=== PATIENT | male | born 1960 | race Caucasian/White ===

== ENCOUNTER → 2016-10-17 | Outpatient (CLI) | payer OTHER | LOC: FIMAGING 15:52 | PROVIDERS: ATTEND Orthopaedic Surgery | DX: Z01.818 Encounter for other preprocedural examination (principal); M17.11 Unilateral primary osteoarthritis, right knee ==

== ENCOUNTER → 2016-11-05 | Day surgery (SDC) | payer OTHER ==
[2016-10-22 16:37] LABS: % IMMATURE GRANULYOCYTES 0.4 % (0.0-1.1); ABSOLUTE IMMATURE GRANULOCYTES 0.03 10^3/uL (0.00-0.10); ADD DIFF? NO; ADD MORPH? NO; ADD SCAN? NO; ATYPICAL LYMPHOCYTE FLAG 0 (0-99); FRAGMENT RBC FLAG 0 (0-99); HEMATOCRIT 42.4 % (40.0-51.0); HEMOGLOBIN 14.7 g/dL (13.7-17.5); LEFT SHIFT FLG 0 (0-99); LIPEMIA HEMOLYSIS FLAG 90 (0-99); MEAN CELL HEMOGLOBIN 29.9 pg (27.9-34.1); MEAN CELL HEMOGLOBIN CONCENTR. 34.7 g/dL (32.4-36.7); MEAN CELL VOLUME 86.2 fL (81.5-99.8); PLATELET CLUMPS FLAG 0 (0-99); PLATELET COUNT 235 10^3/uL (150-400); RED BLOOD CELL COUNT 4.92 10^6/uL (4.40-6.38); RED CELL DISTRIBUTION WIDTH 12.6 % (11.5-15.2)
[~2016-11-05] MED LIST: ACETAMINOPHEN 325 MG TAB PO ONE; CEFAZOLIN 2 GM/DEXTR 100 ML IV ONE; CHLORHEXIDINE GLUC HIBICLENS 118 ML BTL TP ONE; DEXAMETHASONE 4 MG/ML VIAL IVP ONE; FAMOTIDINE 20 MG TAB PO ONE; LIDOCAINE 1% 2 ML INJ ONE; LIDOCAINE 1% 5 ML SDV ID PRN; LR 1,000 ML IV ONE; ROPI/epiNEPH/KETOROLAC JOINT COCKTAIL IU ONE; SKIN ADHESIVE (DERMABOND) 1 EACH TP ONE; TRANEXAMIC ACID 3,000 MG in NS 50 ML IRR ONE; TRANEXAMIC ACID 3,000 MG/50 ML BAG IRR ONE; VANCOMYCIN 1 GM VIAL IV ONE; fentaNYL 100 MCG/2 ML INJ ONE
== END | disposition home or self-care (01) ==
LOC: UNDOADMIN 06:57 → F3N 06:57 → F3NOP 07:45 → EDSTATUS 08:15
PROVIDERS: ATTEND Orthopaedic Surgery
DX: M17.11 Unilateral primary osteoarthritis, right knee (principal); Z53.9 Procedure and treatment not carried out, unspecified reason
CPT/HCPCS: J0171; J1885; J2795; J3010; J3370

== ENCOUNTER → 2016-12-30 | Outpatient (CLI) | payer OTHER | LOC: FIMAGING 15:30 | PROVIDERS: ATTEND Orthopaedic Surgery | DX: Z01.818 Encounter for other preprocedural examination (principal); M17.12 Unilateral primary osteoarthritis, left knee ==

== ENCOUNTER 2017-01-21 08:15 | Observation (INO) | payer OTHER ==
[~2017-01-21 08:15] MED LIST changes: -CEFAZOLIN 2 GM/DEXTR 100 ML IV ONE; -LIDOCAINE 1% 2 ML INJ ONE; -LIDOCAINE 1% 5 ML SDV ID PRN; -LR 1,000 ML IV ONE; -SKIN ADHESIVE (DERMABOND) 1 EACH TP ONE; -VANCOMYCIN 1 GM VIAL IV ONE; +VANCOMYCIN 1 GM VIAL ONE; +VANCOMYCIN 1.5 GM in D5W 250 ML IV ONE; -fentaNYL 100 MCG/2 ML INJ ONE
[2017-01-21] MEDS ORDERED: FAMOTIDINE 20 MG TAB ONE (11:20)
[2017-01-21] MEDS ORDERED: DEXAMETHASONE 4 MG/ML VIAL ONE (11:20)
[2017-01-21] MEDS ORDERED: ACETAMINOPHEN 325 MG TAB ONE (11:21)
[2017-01-21] MEDS ORDERED: KETOROLAC TROMETHAMINE IU ONE (11:45)
[2017-01-21] MEDS ORDERED: ROPIVACAINE IU ONE (11:45)
[2017-01-21] MEDS ORDERED: EPINEPHRINE IU ONE (11:45)
[2017-01-21] MEDS ORDERED: ROPI/epiNEPH/KETOROLAC JOINT COCKTAIL IU ONE (11:45)
[2017-01-21] MEDS ORDERED: LR 1,000 ML IV ONE (12:06)
[2017-01-21] MEDS ORDERED: PROPOFOL/EMULSION 500 MG/50 ML BOTTLE IV ONE ×3 (13:21→16:50)
[2017-01-21] MEDS ORDERED: LIDOCAINE 2% 100 MG/5 ML SYR ONE (13:21)
[2017-01-21] MEDS ORDERED: MIDAZOLAM 2 MG/2 ML VIAL ONE (14:16)
[2017-01-21] MEDS ORDERED: CYCLOBENZAPRINE 10 MG TAB PO PRN (15:12)
[2017-01-21] MEDS ORDERED: ONDANSETRON 4 MG/2 ML VIAL IVP PRN (15:12)
[2017-01-21] MEDS ORDERED: MAGNESIUM HYDROXIDE 30 ML UDCUP PO PRN (15:12)
[2017-01-21] MEDS ORDERED: PHARMACY PAIN CONSULT 1 EA MISC PRN (15:12)
[2017-01-21] MEDS ORDERED: PROMETHAZINE HCL 25 MG/ML INJ IVP PRN (15:12)
[2017-01-21] MEDS ORDERED: POLYETHYLENE GLYCOL 3350 17 GM PKT PO PRN (15:12)
[2017-01-21] MEDS ORDERED: METOCLOPRAMIDE 10 MG/2 ML VIAL IVP PRN (15:12)
[2017-01-21] MEDS ORDERED: diphenhydrAMINE 25 MG CAP PO PRN (15:12)
[2017-01-21] MEDS ORDERED: LACTULOSE 20 GM/30 ML UDCUP PO PRN (15:12)
[2017-01-21] MEDS ORDERED: BISACODYL 10 MG SUPP PR PRN (15:12)
[2017-01-21] MEDS ORDERED: PROMETHAZINE HCL 25 MG SUPPR PR PRN (15:12)
[2017-01-21] MEDS ORDERED: DIPHENOXYLATE/ATROPINE LOMOTIL 1 TAB PO PRN (15:12)
[2017-01-21] MEDS ORDERED: TEMAZEPAM 15 MG CAP PO PRN (15:12)
[2017-01-21] MEDS ORDERED: LR 1,000 ML IV SCH (15:30)
[2017-01-21] MEDS ORDERED: WARFARIN SODIUM 5 MG TAB PO SCH (16:00)
[2017-01-21] MEDS ORDERED: ROPIVACAINE HCL 150 MG/30 ML INJ ONE (16:14)
[2017-01-21] MEDS ORDERED: fentaNYL 100 MCG/2 ML INJ ONE (16:40)
--- NOTE | 2017-01-21 17:19 | POSTOPPROG ---
Post Op Note Date of Operation: 01/21/17 Surgeon: Gallo Zhao Simulation Technician: Zoraida Zhao PAc Anesthesiologist: Hakeem Anesthesia: Spinal Pre-op Diagnosis: B knee djd Post-op Diagnosis: same Indication: pain Procedure: right then left med mpl Findings: knee djd Inf/Abcess present in the surg proc area at time of surgery?: No EBL: 50-100
[2017-01-21] MEDS: FAMOTIDINE 20 MG TAB PO SCH (19:42)
[2017-01-21] MEDS: ACETAMINOPHEN 325 MG TAB PO SCH ×2 (19:43→23:53)
[2017-01-21] MEDS: SENNOSIDES/DOCUSATE SODIUM TAB PO SCH (19:43)
[2017-01-21] MEDS: TAPENTADOL HCL 50 MG TAB PO PRN ×2 (20:08→23:53)
[2017-01-21] MEDS: ONDANSETRON DISINTEGRATING 4 MG TAB PO PRN ×2 (20:09→23:53)
[2017-01-22] MEDS ORDERED: VANCOMYCIN 1.5 GM in D5W 250 ML IV ONE (01:30)
[2017-01-22 05:28] LABS: HEMATOCRIT 42.5 % (40.0-51.0)
[2017-01-22] MEDS: ACETAMINOPHEN 325 MG TAB PO SCH ×2 (05:47→12:13)
[2017-01-22] MEDS: TAPENTADOL HCL 50 MG TAB PO PRN ×3 (05:47→13:31)
[2017-01-22] MEDS: ONDANSETRON DISINTEGRATING 4 MG TAB PO PRN ×2 (05:47→13:33)
[2017-01-22 06:30] LABS: INR 1.08 (0.83-1.16); PROTIME(PATIENT) 13.9 SEC (12.0-15.0)
[2017-01-22 08:01] VITALS: PULSE 70; RESP 16
[2017-01-22] MEDS: SENNOSIDES/DOCUSATE SODIUM TAB PO SCH (08:35)
[2017-01-22] MEDS: FAMOTIDINE 20 MG TAB PO SCH (08:35)
[2017-01-22] MEDS ORDERED: ENOXAPARIN 40 MG/0.4 ML SYR SC SCH (09:00)
--- NOTE | 2017-01-22 09:55 | SOAPPROG ---
SOAP Progress Note Assessment/Plan: Assessment: Patient is doing well POD 1 s/p bilateral medial MPL Pain management: pain is well controlled on oral pain meds. VTE ppx: recommend coumadin daily for 3 weeks, cont MICAELA and SCDs. INR today 1.08 Anemia: level is expected initially postop. Asymptomatic. Continue to monitor D/c planning: d/c to home today pending release from PT Plan: 01/22/17 09:54 Subjective: Clark is doing well today, denies SOB ,chest pain and N/V. Objective: Vital Signs Temp Pulse Resp BP Pulse Ox 37.3 C 70 16 116/76 91 L 01/22/17 08:00 01/22/17 08:00 01/22/17 08:00 01/22/17 08:00 01/22/17 08:00 Laboratory Results 01/22/17 05:11 01/21/17 01/22/17 01/23/17 05:59 05:59 05:59 Intake Total 3850 Output Total 575 Balance 3275 PT 13.9 SEC (12.0-15.0) 01/22/17 05:11 INR 1.08 (0.83-1.16) 01/22/17 05:11 BLE: incision dressing is clean and dry, NVI, +pf/df ICD10 Worksheet Patient Problems: Problems Problem Status Onset Primary localized osteoarthritis of left knee Acute Primary localized osteoarthritis of right knee Acute
[2017-01-22 11:45] VITALS: BP 138/74; TEMP 98.4; O2SAT 95
--- NOTE | 2017-01-22 14:41 | GOP ---
[f rep st] OPERATIVE REPORT DATE OF OPERATION: 01/21/2017 SURGEON: Kimberly Zhao MD CONSTRUCTION JOB TITLES: Zoraida Zhao PA-C. ANESTHESIA: Spinal. PREOPERATIVE DIAGNOSIS: Bilateral knee osteoarthritis. POSTOPERATIVE DIAGNOSIS: Bilateral knee osteoarthritis. PROCEDURE PERFORMED: 1. Right medial compartment partial knee replacement with computer navigation, robotic-assist. 2. Left medial compartment partial knee replacement with computer navigation, robotic-assist. FINDINGS: bilateral severe medial DJD ESTIMATED BLOOD LOSS: 50 cc. INDICATIONS: This is a 56-year-old male with severe and progressive pain and deformity of the bilateral knees unresponsive to conservative care. The risks and benefits of surgical intervention were explained in detail. DESCRIPTION OF PROCEDURE: The patient was brought to the operating room and placed on the table in supine position. Spinal anesthesia was induced without difficulty. A pneumatic tourniquet was applied about the proximal thigh and the leg was prepped and draped in sterile fashion. Attention was turned first to the distal aspect of the right femur. At 3 cm proximal to the lateral rise of the femur, 2 percutaneous half pins were placed for fixation of the femoral array. In a similar fashion, 2 pins were placed anterolateral on the tibia for fixation of the tibial array. External land marking and registration of the hip center was performed without difficulty. After exsanguination by elevation, the tourniquet was inflated to 250 mmHg. Incision was made from the tibial tuberosity to the superior pole of the patella. Dissection was carried out through the subcutaneous tissue to the deep fascia using Bovie electrocautery for hemostasis. Medial parapatellar arthrotomy was carried out to the superior pole of the patella. The medial collateral ligament was elevated and the infrapatellar fat pad was resected. Internal femoral and tibial registration was carried out without difficulty and the femoral and tibial checkpoints were placed and verified for accuracy. Attention was turned to the femur. The foot print for the size 6 femoral component was cut with the 6 mm bur using the Contractually robotic system and verified for accuracy against the CT based plan. The hole was cut for the femoral post. In a similar fashion, the 6 mm bur was used to cut the foot print for the size 6 tibial component using the BERNARD system and verified for accuracy against the CT based plan. Attention was turned to the posterior aspect of the knee and remnants of the medial meniscus were excised. The posterior capsule was injected with ropivacaine, epinephrine and Toradol. Trial reduction was carried out and there was excellent range of motion, alignment and stability using the size 6 femoral component and the size 6 tibial component, 6 x 9 mm polyethylene. All trials were then removed. The joint was thoroughly irrigated and carefully dried. One package of cement and 1 gram of vancomycin were mixed in the vacuum mixer and placed on the fixation surfaces of all components. The components were implanted and all excess cement was thoroughly removed. Implant placement was verified against the CT view plan and found to be excellent. The tourniquet was deflated and all bleeders were coagulated. The wound was thoroughly irrigated and closed using interrupted sutures of 2-0 Vicryl for the joint capsule. The subcu was closed with 3-0 Vicryl and the skin with 4-0 Monocryl. Dermabond and Steri-Strips were applied, followed by a compressive dressing. Attention was then turned to the left leg. A pneumatic tourniquet was applied about the proximal thigh and the leg was prepped and draped in sterile fashion. Attention was turned first to the distal aspect of the left femur. At 3 cm proximal to the lateral rise of the femur, 2 percutaneous half pins were placed for fixation of the femoral array. In a similar fashion, 2 pins were placed anterolateral on the tibia for fixation of the tibial array. External land marking and registration of the hip center was performed without difficulty. After exsanguination by elevation, the tourniquet was inflated to 250 mmHg. Incision was made from the tibial tuberosity to the superior pole of the patella. Dissection was carried out through the subcutaneous tissue to the deep fascia using Bovie electrocautery for hemostasis. Medial parapatellar arthrotomy was carried out to the superior pole of the patella. The medial collateral ligament was elevated and the infrapatellar fat pad was resected. Internal femoral and tibial registration was carried out without difficulty and the femoral and tibial checkpoints were placed and verified for accuracy. Attention was turned to the femur. The foot print for the size 6 femoral component was cut with the 6 mm bur using the Contractually robotic system and verified for accuracy against the CT based plan. The hole was cut for the femoral post. In a similar fashion, the 6 mm bur was used to cut the foot print for the size 7 tibial component using the BERNARD system and verified for accuracy against the CT based plan. Attention was turned to the posterior aspect of the knee and remnants of the medial meniscus were excised. The posterior capsule was injected with ropivacaine, epinephrine and Toradol. Trial reduction was carried out and there was excellent range of motion, alignment and stability using the size 6 femoral component and the size 7 tibial component, 7x8 mm polyethylene. All trials were then removed. The joint was thoroughly irrigated and carefully dried. One package of cement and 1 gram of vancomycin were mixed in the vacuum mixer and placed on the fixation surfaces of all components. The components were implanted and all excess cement was thoroughly removed. Implant placement was verified against the CT view plan and found to be excellent. The tourniquet was deflated and all bleeders were coagulated. The wound was thoroughly irrigated and closed using interrupted sutures of 2-0 Vicryl for the joint capsule. The subcu was closed with 3-0 Vicryl and the skin with 4-0 Monocryl. Dermabond and Steri-Strips were applied, followed by a compressive dressing. The patient was then moved from the operating room to the recovery room in good condition, having tolerated the procedure well. CASE CLASSIFICATION: Clean. /[id number]/MODL MTDD
== END 2017-01-22 14:03 | disposition home or self-care (01) ==
LOC: INTOOBSV 10:56 → F3N 10:56
PROVIDERS: ADMIT Orthopaedic Surgery; ATTEND Orthopaedic Surgery
PROC: 8E0YXBZ Computer Assisted Procedure of Lower Extremity (ICD-10-PCS; principal; 2017-01-21 14:15)
PROC: 0SRD0JZ Replacement of Left Knee Joint with Synthetic Substitute, Open Approach (ICD-10-PCS; principal; 2017-01-21 14:15)
PROC: 0SRC0JZ Replacement of Right Knee Joint with Synthetic Substitute, Open Approach (ICD-10-PCS; principal; 2017-01-21 14:15)
DX: M17.0 Bilateral primary osteoarthritis of knee (principal); M25.561 Pain in right knee; M25.562 Pain in left knee; Z79.01 Long term (current) use of anticoagulants
CPT/HCPCS: 20985; 27446; 73560; 97161; 97165; G0378; C1713; J0171; J1100; J1650; J1885; J2001; J2250; J2704; J2795; J3010; J3370

== ENCOUNTER 2017-08-30 10:49 | Emergency (ER) | payer OTHER ==
[2017-08-30 11:00] VITALS: BP 149/97; PULSE 74; RESP 16; TEMP 98.8; O2SAT 94
--- NOTE | 2017-08-30 12:03 | EDPHY ---
General Narrative: CHIEF COMPLAINT: Low back pain starting Thursday HISTORY OF PRESENT ILLNESS: Patient complains of back pain that started yesterday morning. He feels is related to exercise he did Thursday. It was minimally painful Thursday. He awoke Thursday with moderate to severe low back pain, right greater than left. No midline tenderness or trauma. No radiating pain. No numbness, tingling or weakness. No fever or chills. No injections. No difficulty ambulating other than pain. Has a history of disc bulge and diskectomy remotely. He has no other associated complaints or modifying factors. ESTABLISHED ORTHOPEDIST: None currently REVIEW OF SYSTEMS: Ten systems reviewed and are negative unless otherwise noted in the HPI PAST MEDICAL HISTORY: Back pain, dermatologic diagnoses unknown PAST SURGICAL HISTORY: Low back diskectomy SOCIAL HISTORY: Nonsmoker. Works as a learning disabilities resource teacher FAMILY HISTORY: Noncontributory EXAMINATION General Appearance: Alert, no distress Neck: Supple nontender. No tenderness, crepitus or deformity. Back: No midline tenderness of the thoracic or lumbar spine. There is tenderness of the soft tissue structures in the lumbar spine, right greater than left. This primarily the erector spinae. This is also in the insertion of the latissimus dorsi. Range of motion is intact but painful. Cardiovascular: Symmetric DP and PT pulses 2+. Brisk cap refill Neurological: Symmetric patellar reflexes 2+. Strength is 5/5 in the knees and ankles symmetrically A&O, sensory symmetric, strength symmetric Skin: Warm and dry, no rash. No petechiae or purpura. No erythema or abscess over the spinous processes. Extremities: Nontender, no pedal edema Psychiatric: Mood and affect normal DIFFERENTIAL DIAGNOSES: Including but not limited to low back strain, sciatica, disc bulge, disc herniation, acute cord compression, cauda equina MDM: 12:25 p.m. Acute low back pain without any evidence of acute cord compression or cauda equina. No bony tenderness. No evidence of epidural abscess or diskitis. This is a mechanical injury. I will treat him symptomatically and refer him back to his primary care physician. I do not feel he warrants any emergent imaging or x -ray at this time. He and his spouse are comfortable this plan. He has ED precautions that we discussed at length. He is ambulatory without assistance. He is discharged home stable condition. SUPERVISION: This patient was independently evaluated without direct involvement of or examination by the attending physician. ED Precautions: Worsening pain. Erythema, edema, cyanosis, pallor, paresthesia or anesthesia. - History Smoking Status: Never smoked - Objective Vital Signs: Initial Vital Signs Temperature (C) 98.8 F 08/30/17 10:56 Heart Rate 74 08/30/17 10:56 Respiratory Rate 16 08/30/17 10:56 Blood Pressure 149/97 H 08/30/17 10:56 O2 Sat (%) 94 08/30/17 10:56 O2 Delivery Mode Room Air Allergies/Adverse Reactions: Penicillins Allergy (Severe, Verified 10/06/16 16:17) Hives celecoxib [From Celebrex] Allergy (Verified 10/06/16 16:17) Vomiting gabapentin Allergy (Verified 10/06/16 16:17) Other-Enter Comments hydrocodone bitartrate [From Vicodin] Allergy (Verified 10/06/16 16:17) Itching metaxalone [From Skelaxin] Allergy (Verified 10/06/16 16:17) Itching oxycodone Allergy (Verified 10/06/16 16:17) Itching pneumococcal 23-valent polysacchari [From Pneumovax 23] Allergy (Verified 16:17) Hives Home Medications: Medication Instructions Recorded Cholecalciferol Vit D3 [Vitamin D3 5,000 units PO DAILY 06/05/16 (*)] Acetaminophen [Tylenol 325mg (*)] 325 mg PO DAILY PRN 12/25/16 Acetaminophen [Tylenol 325mg (*)] 650 mg PO Q6HRS #0 tab 01/21/17 Ondansetron Odt [Zofran Odt 4 mg 4 mg PO Q4HRS PRN #0 tab 01/21/17 (*)] Sennosides/Docusate Sodium 1 - 2 tab PO BID #0 tab 01/21/17 [Senokot-S] Diazepam [Valium 5 MG (*)] 5 mg PO TID PRN #6 tab 08/30/17 Ondansetron Odt [Zofran Odt 4 mg 4 mg PO Q6 PRN #12 tab 08/30/17 (*)] predniSONE [Deltasone] 60 mg PO DAILY #15 tablet 08/30/17 traMADol [Ultram 50 mg (*)] 50 mg PO Q4 PRN #12 tab 08/30/17 Departure - Departure Disposition: Home, Routine, Self-Care Clinical Impression: Low back strain Qualifiers: Encounter type: initial encounter Qualified Code(s): S39.012A - Strain of muscle, fascia and tendon of lower back, initial encounter Acute low back pain Qualifiers: Back pain laterality: right Sciatica presence: without sciatica Qualified Code( s): M54.5 - Low back pain Condition: Good Instructions: Low Back Strain (ED), Acute Low Back Pain (ED) Additional Instructions: 1. Medications as prescribed as needed 2. Contact primary care physician tomorrow morning for outpatient workup 3. ED precautions as discussed 4. Topical lidocaine patch [id number] 12 hr on, 12 hr off Referrals: Patrica Horowitz MD [Primary Care Provider] - As per Instructions Humberto Naik MD [Medical Doctor] - As per Instructions Stand Alone Forms: Work Excuse Prescriptions: Diazepam [Valium 5 MG (*)] 5 mg PO TID PRN #6 tab PRN Reason: Spasms Ondansetron Odt [Zofran Odt 4 mg (*)] 4 mg PO Q6 PRN #12 tab PRN Reason: Nausea/Vomiting, Use 1st predniSONE [Deltasone] 60 mg PO DAILY #15 tablet traMADol [Ultram 50 mg (*)] 50 mg PO Q4 PRN #12 tab PRN Reason: Pain, Mild
== END 2017-08-30 12:51 | disposition home or self-care (01) ==
DX: S39.012A Strain of muscle, fascia and tendon of lower back, initial encounter (principal); X58.XXXA Exposure to other specified factors, initial encounter

== ENCOUNTER → 2018-06-27 12:18 | Inpatient (IN) | payer OTHER ==
--- NOTE | 2018-06-23 06:40 | PDHPUP ---
History & Physical Update H&P update statement: This history and physical update is based on an assessment of the patient which was completed after admission or registration (within 24 hours), but prior to the surgery/procedure. H&P update: H&P reviewed & patient examined, no change in patient's condition since H&P completed
--- NOTE | 2018-06-23 07:37 | PDANEPAE ---
ANE Past Medical History - Cardiovascular History Hx Hypertension: No Hx Arrhythmias: No Hx Chest Pain: No Hx Coronary Artery / Peripheral Vascular Disease: No Hx CHF / Valvular Disease: No Hx Palpitations: No - Pulmonary History Hx COPD: No Hx Asthma/Reactive Airway Disease: No Hx Recent Upper Respiratory Infection: No Hx Oxygen in Use at Home: No Hx Sleep Apnea: Yes Sleep Apnea Screening Result - Last Documented: Positive Pulmonary History Comment: sarcoidosis >10 yrs ago - NO LONGER. treasure positive uses cpap- instructed pt to bring to hospital - Neurologic History Hx Cerebrovascular Accident: No Hx Seizures: No Hx Dementia: No Neurologic History Comment: hx of spinal leak needing blood patch s/p spinal anesthesia - Endocrine History Hx Diabetes: No - Renal History Hx Renal Disorders: No - Liver History Hx Hepatic Disorders: No - Neurological & Psychiatric Hx Hx Neurological and Psychiatric Disorders: No - Cancer History Hx Cancer: Yes Cancer History Comment: mohs procedure to left hand for skin ca - Congenital Disorder History Hx Congenital Disorders: No - GI History Hx Gastrointestinal Disorders: No Gastrointestinal History Comment: NEG - Other Health History Other Health History: wears glasses - Chronic Pain History Chronic Pain: Yes (R HIP) - Surgical History Prior Surgeries: THERON TKA. 07/01/16 right shoulder scope with Eduard and umbilical hernia repair with Paulino. R HAND X2. R ELBOW. R SHOULDER. R KNEE X3. HERNIA THERON. R GROIN. VASECTOMY. DISC LUMBAR. L KNEE X2. L SHOULDER ANE Review of Systems Review of Systems: - Exercise capacity METS (RN): 5 METS ANE Patient History - Allergies Allergies/Adverse Reactions: Penicillins Allergy (Severe, Verified 10/06/16 16:17) Hives celecoxib [From Celebrex] Allergy (Verified 10/06/16 16:17) Vomiting gabapentin Allergy (Verified 10/06/16 16:17) Other-Enter Comments hydrocodone bitartrate [From Vicodin] Allergy (Verified 10/06/16 16:17) Itching metaxalone [From Skelaxin] Allergy (Verified 10/06/16 16:17) Itching oxycodone Allergy (Verified 10/06/16 16:17) Itching pneumococcal 23-valent polysacchari [From Pneumovax 23] Allergy (Verified 16:17) Hives - Home Medications Home Medications: Cholecalciferol Vit D3 [Vitamin D3 (*)] 1,000 units PO DAILY 06/21/18 [Last Taken Unknown] Multivitamins [Multivitamin (*)] 1 each PO DAILY 06/21/18 [Last Taken Unknown] RX: Herbals/Supplements -Info Only 1 ea PO DAILY 06/21/18 [Last Taken Unknown] - NPO status NPO Since - Liquids (Date): 06/23/18 NPO Since - Liquids (Time): 06:45 NPO Since - Solids (Date): 06/22/18 - Smoking Hx Smoking Status: Never smoked - Family Anes Hx Family Hx Anesthesia Complications: none ANE Labs/Vital Signs - Vital Signs Height: 177.8 cm Weight: 108.862 kg ANE Physical Exam - Airway Mallampati Score: Class 2 Mouth exam: normal dental/mouth exam - Pulmonary Pulmonary: no respiratory distress, no rales or rhonchi, clear to auscultation - Cardiovascular Cardiovascular: regular rate and rhythym, no murmur, rub, or gallop - ASA Status ASA Status: II ANE Anesthesia Plan Anesthesia Plan: spinal
--- NOTE | 2018-06-23 09:20 | POSTOPPROG ---
Post Op Note Date of Operation: 06/23/18 Surgeon: Gallo Greene Rnp: adi greene PA-C Anesthesiologist: dr. Burns Anesthesia: Spinal Pre-op Diagnosis: right hip OA Post-op Diagnosis: same Indication: right hip pain Procedure: R JUNO ant approach Findings: severe hip OA Inf/Abcess present in the surg proc area at time of surgery?: No EBL: 100-500
[2018-06-23] MEDS: fentaNYL 100 MCG/2 ML INJ IVP PRN ×2 (10:33→10:44)
--- NOTE | 2018-06-23 10:39 | POSTANESTH ---
Post Anesthetic Evaluation Cardiovascular Status: Normal, Stable Respiratory Status: Normal, Stable Level of Consciousness/Mental Status: Can Participate in Eval Pain Control: Adequate, Prn Tx Ordered Nausea/Vomiting Control: Adequate, Prn Tx Ordered Complications Possibly Related to Anesthesia: None Noted
[2018-06-23] MEDS: TAPENTADOL HCL 50 MG TAB PO PRN ×3 (11:52→20:14)
[2018-06-23] MEDS: ACETAMINOPHEN 325 MG TAB PO SCH ×3 (11:52→23:05)
[2018-06-23] MEDS: CYCLOBENZAPRINE 10 MG TAB PO PRN ×2 (13:22→21:32)
--- NOTE | 2018-06-23 15:20 | PDMN ---
Medical Necessity Medical necessity: Pt meets inpt criteria per MD order and [facility] [place] S-560, Hip Arthroplasty, Medicare inpt only list. 57 y/o admitted for R total hip arthroplasty and post-op care.
[2018-06-23] MEDS: WARFARIN SODIUM 5 MG TAB PO SCH (15:35)
[2018-06-23] MEDS: FAMOTIDINE 20 MG TAB PO SCH (20:13)
[2018-06-23] MEDS: SENNOSIDES/DOCUSATE SODIUM TAB PO SCH (20:14)
[2018-06-23] MEDS: TEMAZEPAM 15 MG CAP PO PRN (21:32)
[2018-06-24] MEDS: TAPENTADOL HCL 50 MG TAB PO PRN ×5 (00:13→21:16)
[2018-06-24 05:25] LABS: INR 1.08 (0.83-1.16); PROTIME(PATIENT) 14.2 SEC (12.0-15.0)
[2018-06-24] MEDS: ACETAMINOPHEN 325 MG TAB PO SCH ×4 (06:06→23:54)
--- NOTE | 2018-06-24 08:26 | SOAPPROG ---
SOAP Progress Note Assessment/Plan: Assessment: Patient is doing well POD 1 s/p R JUNO Pain management: pain is well controlled on oral pain meds. VTE ppx: recommend coumadin and lovenox. INR today 1.08, cont MICAELA and SCDs D/c planning: d/c to home today pending release from PT postop urinary retention: straight cath'd yesterday, resolved today Plan: 06/24/18 08:24 06/24/18 08:26 Subjective: levi is doing well, mild pain, denies SOB, chest pain and N/V. Objective: Vital Signs Temp Pulse Resp BP Pulse Ox 36.6 C 84 16 132/74 H 92 06/24/18 07:31 06/24/18 07:31 06/24/18 07:31 06/24/18 07:31 06/24/18 07:31 Laboratory Results 06/24/18 04:25 06/23/18 11:54 06/23/18 06/24/18 06/25/18 05:59 05:59 05:59 Intake Total 850 Output Total 1200 Balance -350 PT 14.2 SEC (12.0-15.0) 06/24/18 04:25 INR 1.08 (0.83-1.16) 06/24/18 04:25 RLE: incision dressing is clean and dry, NVI, +pf/df ICD10 Worksheet Patient Problems: Problems Problem Status Onset Primary localized osteoarthritis of right hip Acute Primary localized osteoarthritis of left knee Acute Primary localized osteoarthritis of right knee Acute
[2018-06-24] MEDS: SENNOSIDES/DOCUSATE SODIUM TAB PO SCH ×2 (08:36→21:17)
[2018-06-24] MEDS: CYCLOBENZAPRINE 10 MG TAB PO PRN (08:37)
[2018-06-24] MEDS: FAMOTIDINE 20 MG TAB PO SCH ×2 (08:37→21:17)
--- NOTE | 2018-06-24 09:36 | ASMTLACE ---
LACE Length of stay for Answers: 2 days current admission Acuity / Level of Answers: Yes Care: Did the patient have an inpatient admission? Comorbidities - select Answers: Opioid dependence all that apply / Chronic pain # of Emergency department Answers: 1-2 visits in the last 6 months Score: 10 Date Signed: 06/24/2018 09:35 AM Electronically Signed By:VINNIE De oSuza
[2018-06-24] MEDS: ENOXAPARIN 40 MG/0.4 ML SYR SC SCH (09:54)
--- NOTE | 2018-06-24 10:25 | GOP ---
DATE OF OPERATION: 06/23/2018 SURGEON: Kimberly Zhao MD ELECTRICIAN OFFICE: Zoraida Zhao, JAYESH. ANESTHESIA: Spinal. PREOPERATIVE DIAGNOSIS: Right hip osteoarthritis. POSTOPERATIVE DIAGNOSIS: Right hip osteoarthritis. PROCEDURE PERFORMED: Right total hip arthroplasty. FINDINGS: ESTIMATED BLOOD LOSS: 200 cc. INDICATIONS: The patient has progressively worsening arthritis of the hip which has failed medical m anagement. The patient understands the treatment options including continued non-operative care and has selected surgical intervention. The patient has decided to undergo total hip arthroplasty via th e direct anterior approach, understanding the risks of the procedure including, but not limited to, n eurovascular injury, infection, persistent pain, component wear and loosening, deep venous thrombosis , pulmonary embolism, limb length inequality, hip instability (including dislocation), and intra-oper ative fractures. DESCRIPTION OF PROCEDURE: After proper identification of the patient including verification and fany ing the surgical site, the patient was brought to the operating room and placed in the supine positio n. All bony prominences were well padded. Anesthesia was induced without complication and intraveno us prophylactic antibiotics were administered prior to skin incision. The operative leg was placed in the Trumpf Arch table extension and the well leg in a Yellofin leg ho lder. The patient was prepped and draped in the usual sterile fashion. The C-arm was draped for int ra-operative fluoroscopy to check acetabular position, femoral component position including leg lengt h and femoral offset. Attention was then drawn to surgical exposure of the hip. An incision was made with a #10 Bard Coryell r blade starting 3 cm lateral and 3 cm distal to the anterior superior iliac spine measuring 8-10 cm and coursing distally toward the greater trochanter. The skin and subcutaneous tissues were divided sharply down to the fascia wally. The fascia wally was incised in line with the skin incision exposing the underlying tensor fascia wally muscle. The muscle was bluntly elevated from the fascia and the f irst extracapsular Cobra retractor was placed laterally at the junction of the superior femoral neck and greater trochanter. The lateral femoral circumflex vessels were identified, cauterized, and divi ded with the Aquamantys bipolar cautery. The deep investing fascia of the TFL was divided to allow p carola mobilization of the muscle preventing damage during the retraction. The reflected head of the rectus femoris muscle was elevated off the anterior hip capsule and a medial Cobra retractor was plac ed just proximal to the lesser trochanter. The anterior capsulotomy was made sharply from the superolateral acetabulum to the saddle junction of the superior femoral neck and greater trochanter, then coursing inferomedial towards the lesser troc hanter. The retractors were then placed in the intracapsular position for femoral neck osteotomy. C orresponding to pre-operative templating, the osteotomy was made with the oscillating saw carefully p rotecting the greater trochanter and soft tissues. The femoral head was removed from the acetabulum with a corkscrew and confirmed to be severely arthritic with exposed bone, deformity and osteophytes. Similar findings were confirmed in the acetabulum. The Arch table extension was then placed in 40 degrees external rotation. Attention was then drawn to the acetabular preparation. After placement of the anterior and posterio r Cobra retractors outside the labrum and intracapsular, the circumferential labrum was removed sharp ly. The foveal contents were then removed and hemostasis obtained with cautery. The first reamer selected was sized using the removed femoral head. Reaming began with medialization and then commenced in 2 mm increments at 45 degrees of abduction and 15 degrees of anteversion using fluoroscopic navigation. Reaming ceased 1 mm less than the definitive acetabular component and samy esponded to the pre-operative templating. The final acetabular component was inserted using fluorosc opy to achieve proper orientation yielding excellent purchase and stability in the acetabulum. The f inal acetabular liner was then placed and its seating confirmed. Attention was then turned to the femur. The Arch table extension was placed in extension and adducti on, delivering the osteotomized femoral neck into the wound. A 2-pronged femoral elevator was placed at the calcar and another at the tip of the greater trochanter. The posterolateral capsule was rele ased with cautery allowing mobilization of the femur lateral and anterior for preparation. The exter nal rotators were visualized and preserved. A curette and rongeur were used to open the starting poi nt for broaching. Serial broaching started with the #0 broach and ended with the broach that exhibit ed excellent fit in the proximal femur. A change in pitch during mallet strikes was accompanied by t he inability to advance the broach any further. The trial reduction was performed and fluoroscopic n avigation was utilized to check limb length. Adjustments were made to equalize limb length according ly. After the final trials were accepted they were removed and the wound was copiously lavaged. The femo ral component was seated to the same depth as the final broach and the femoral head was impacted onto the clean trunnion. The hip was then reduced for the final time and once more fluoroscopy was used to check that limb length equality was achieved. The wound was irrigated and closed in layers, the fascia wally with 2-0 Quill, the subcutaneous tissue with 2-0 Quill, and the skin with Dermabond. Sterile dressings were applied. Final sharps and spon ge counts were accurate. The patient was then transferred to a hospital bed and brought to the [facility] room in stable condition. IMPLANTS: Accolade II size 6 at 127, acetabular component a 58 mm Trident II, liner is a Trident X3 36 mm, head is a Biolox Delta 36 mm +2.5. /[id number]/MODL
[2018-06-24] MEDS: WARFARIN SODIUM 5 MG TAB PO SCH (16:52)
[2018-06-24] MEDS: DIAZEPAM 5 MG TAB PO PRN ×2 (16:55→23:55)
[2018-06-24] MEDS: TEMAZEPAM 15 MG CAP PO PRN (21:17)
[2018-06-25] MEDS: TAPENTADOL HCL 50 MG TAB PO PRN ×5 (03:31→20:02)
[2018-06-25 05:24] LABS: INR 1.08 (0.83-1.16); PROTIME(PATIENT) 14.2 SEC (12.0-15.0)
[2018-06-25] MEDS: ACETAMINOPHEN 325 MG TAB PO SCH ×3 (06:07→18:44)
[2018-06-25] MEDS: DIAZEPAM 5 MG TAB PO PRN ×2 (06:07→18:44)
[2018-06-25] MEDS: ENOXAPARIN 40 MG/0.4 ML SYR SC SCH (07:52)
[2018-06-25] MEDS: FAMOTIDINE 20 MG TAB PO SCH ×2 (07:52→20:02)
[2018-06-25] MEDS: SENNOSIDES/DOCUSATE SODIUM TAB PO SCH ×2 (07:52→20:02)
[2018-06-25] MEDS: CYCLOBENZAPRINE 10 MG TAB PO PRN (12:13)
[2018-06-25] MEDS: WARFARIN SODIUM 5 MG TAB PO SCH (16:06)
--- NOTE | 2018-06-25 16:10 | SOAPPROG ---
FRANTZ Progress Note Assessment/Plan: Assessment: Patient is doing well POD 2 s/p R JUNO Pain management: patient is having a difficult time coping with pain. Tried dilaudid yesterday afternoon and patient states it did not last as long as nucynta medication. No pain with axial load of leg. Pain is lateral to incision. VTE ppx: recommend coumadin and lovenox. INR today 1.08, cont MICAELA and SCDs H/h is stable D/c planning: d/c to SNF vs home tomorrow pending pain management and ability to work with PT Plan: 06/24/18 08:24 06/24/18 08:26 06/25/18 15:58 Subjective: patient is resting comfortably in bed. Reports weakness when he lifts his right leg. Patient reports he is unable to walk far distances due to thigh pain. denies pain in his groin, pins and needles, or burning sensation. States dilaudid did not alleviate pain as well as nucynta. States flexeril helps. patient and his are concerned about his pain level Objective: Vital Signs Temp Pulse Resp BP Pulse Ox 36.9 C 94 16 122/73 H 91 L 06/25/18 15:37 06/25/18 15:37 06/25/18 15:37 06/25/18 15:37 06/25/18 15:37 Laboratory Results 06/25/18 04:19 06/23/18 11:54 06/24/18 06/25/18 06/26/18 05:59 05:59 05:59 Intake Total 850 1350 Output Total 1200 2250 200 Balance -350 -900 -200 PT 14.2 SEC (12.0-15.0) 06/25/18 04:19 INR 1.08 (0.83-1.16) 06/25/18 04:19 RLE: incision is clean and dry, NVI, +pf/df, no pain with axial load or IR/ER of right hip with knee straight. TTP thigh lateral to incision ICD10 Worksheet Patient Problems: Problems Problem Status Onset Primary localized osteoarthritis of right hip Acute Primary localized osteoarthritis of left knee Acute Primary localized osteoarthritis of right knee Acute
[2018-06-25] MEDS: TEMAZEPAM 15 MG CAP PO PRN (20:07)
[2018-06-26] MEDS: ACETAMINOPHEN 325 MG TAB PO SCH ×4 (00:19→17:41)
[2018-06-26] MEDS: TAPENTADOL HCL 50 MG TAB PO PRN ×5 (00:40→22:33)
[2018-06-26] MEDS: CYCLOBENZAPRINE 10 MG TAB PO PRN ×3 (00:40→17:41)
--- NOTE | 2018-06-26 08:36 | ASMTCMCOM ---
CM Note CM Note Notes: Pt had planned R JUNO, has been challenged by pain. Yesterday PT rec inpatient rehab vs. SNF. IPR may not be appropriate level of care and he likely will not qualify. If pt does need SNF [employer] does not authorize on weekends, earliest insurance auth would be obtained in Thursday. This does give pt time to improve and be safe to go home. Pt resides with spouse. [facility] do take [employer]. CM to follow. Date Signed: 06/26/2018 08:36 AM Electronically Signed By:VINNIE De Souza
[2018-06-26] MEDS: ENOXAPARIN 40 MG/0.4 ML SYR SC SCH (08:46)
[2018-06-26] MEDS: SENNOSIDES/DOCUSATE SODIUM TAB PO SCH ×2 (08:47→20:00)
[2018-06-26] MEDS: FAMOTIDINE 20 MG TAB PO SCH ×2 (08:47→20:00)
[2018-06-26 10:18] LABS: INR 1.31 (0.83-1.16); PROTIME(PATIENT) 16.5 SEC (12.0-15.0)
--- NOTE | 2018-06-26 10:50 | SOAPPROG ---
SOAP Progress Note Assessment/Plan: Assessment: Patient is doing well POD 3 s/p R JUNO Pain management: patient is having a difficult time coping with pain. Xray obtained today shows well aligned JUNO and no evidence of fracture VTE ppx: recommend coumadin daily. stop lovenox INR today 1.3, cont MICAELA and SCDs H/h is stable D/c planning: d/c to SNF when approval from insurance can occur Plan: 06/24/18 08:24 06/24/18 08:26 06/25/18 15:58 06/26/18 10:48 Subjective: patient reports on going pain,has not tolerated working with PT well Objective: Vital Signs Temp Pulse Resp BP Pulse Ox 37.3 C 87 17 114/72 92 06/26/18 07:27 06/26/18 07:27 06/26/18 07:27 06/26/18 07:27 06/26/18 07:27 Laboratory Results 06/25/18 04:19 06/23/18 11:54 06/25/18 06/26/18 06/27/18 05:59 05:59 05:59 Intake Total 1350 400 Output Total 2250 425 Balance -900 -25 PT 16.5 SEC (12.0-15.0) H 06/26/18 09:50 INR 1.31 (0.83-1.16) H 06/26/18 09:50 RLE: incision dressing is clean and dry, NVI ICD10 Worksheet Patient Problems: Problems Problem Status Onset Primary localized osteoarthritis of right hip Acute Primary localized osteoarthritis of left knee Acute Primary localized osteoarthritis of right knee Acute
--- NOTE | 2018-06-26 13:48 | ASMTCMCOM ---
CM Note CM Note Notes: Spoke with pt about SNF, he is adamantly declining SNF. Pt reports he needs to have one more night in the hospital and then he and his feel safe going home and following up with outpatient PT. CM will continue to follow. Date Signed: 06/26/2018 01:47 PM Electronically Signed By:VINNIE De Souza
--- NOTE | 2018-06-26 15:49 | ASMTCMCOM ---
CM Note CM Note Notes: Pt Dania at bedside and asks to speak with CM. CM goes over all d/c options, by the end of the conversation pt and Dania adamant they will not consider SNF or HHC set up by the hospital. PT Sowmya does step into room for a bit and reports to Dania pt is cleared for home he needs a little work on stairs. Pt and Dania report they will d/c tomorrow and follow up with [facility] if they need any services. CM will follow. Date Signed: 06/26/2018 03:49 PM Electronically Signed By:VINNIE De Souza
[2018-06-26] MEDS: WARFARIN SODIUM 5 MG TAB PO SCH (16:40)
[2018-06-26] MEDS: TEMAZEPAM 15 MG CAP PO PRN (22:33)
[2018-06-27] MEDS: ACETAMINOPHEN 325 MG TAB PO SCH ×3 (00:36→12:04)
[2018-06-27] MEDS: TAPENTADOL HCL 50 MG TAB PO PRN ×2 (03:22→09:10)
[2018-06-27 07:58] VITALS: BP 144/78
[2018-06-27] MEDS: SENNOSIDES/DOCUSATE SODIUM TAB PO SCH (09:10)
[2018-06-27] MEDS: CYCLOBENZAPRINE 10 MG TAB PO PRN (09:10)
[2018-06-27] MEDS: FAMOTIDINE 20 MG TAB PO SCH (09:10)
[2018-06-27 10:09] LABS: INR 1.29 (0.83-1.16); PROTIME(PATIENT) 16.3 SEC (12.0-15.0)
--- NOTE | 2018-06-27 11:37 | SOAPPROG ---
SOAP Progress Note Assessment/Plan: Assessment: Patient is doing well POD 4 s/p R JUNO Pain management: patient is having a difficult time coping with pain, but patient states pain is better today. Xray obtained yesterday shows well aligned JUNO and no evidence of fracture VTE ppx: recommend coumadin daily.1.3, cont MICAELA and SCDs H/h is stable D/c planning: d/c to home today. Plan: 06/24/18 08:24 06/24/18 08:26 06/25/18 15:58 06/26/18 10:48 06/27/18 11:36 Subjective: patient reports pain is improving Objective: Vital Signs Temp Pulse Resp BP Pulse Ox 36.9 C 90 16 144/78 H 94 06/27/18 07:57 06/27/18 07:57 06/27/18 07:57 06/27/18 07:57 06/27/18 07:57 Laboratory Results 06/25/18 04:19 06/23/18 11:54 06/26/18 06/27/18 06/28/18 05:59 05:59 05:59 Intake Total 400 1350 Output Total 425 Balance -25 1350 PT 16.3 SEC (12.0-15.0) H 06/27/18 09:48 INR 1.29 (0.83-1.16) H 06/27/18 09:48 RLE: incision dressing is clean and dry, NVI, +pf/df ICD10 Worksheet Patient Problems: Problems Problem Status Onset Primary localized osteoarthritis of right hip Acute Primary localized osteoarthritis of left knee Acute Primary localized osteoarthritis of right knee Acute
--- NOTE | 2018-06-27 12:01 | ASDISCHSUM ---
Discharge Information Plan Status:Home with No Needs Medically Cleared to Leave:06/26/2018 Discharge Date:06/26/2018 CM D/C Disposition:Home, Routine, Self-Care ADT D/C Disposition:Home, Routine, Self-Care Projected Discharge Date:06/27/2018 01:00 PM Transportation at D/C:Family Discharge Delay Reason: Follow-Up Date:06/27/2018 01:00 PM Discharge Slot:2 - 12:01 pm - 18:00 pm Final Diagnosis:R Hip pain Placement Information Patient Contact Information Contact Name:ARY Relationship: Address:[address] [address] City:[place] Alternate Phone: [facility]/Zip Code:[place] [phone] Email: Financial Information Financial Class:[employer] Primary Plan Desc:[facility] [place] [facility] Primary Plan Number:[id number] Secondary Plan Desc: Secondary Plan Number: Assessment Information LACE LACE Length of stay for Answers: 2 days current admission Acuity / Level of Answers: Yes Care: Did the patient have an inpatient admission? Comorbidities - select Answers: Opioid dependence all that apply / Chronic pain # of Emergency department Answers: 1-2 visits in the last 6 months Score: 10 Date Signed: 06/24/2018 09:35 AM Electronically Signed By:VINNIE De Souza [facility] CM Progress Note CM Note CM Note Notes: Pt had planned R JUNO, has been challenged by pain. Yesterday PT rec inpatient rehab vs. SNF. IPR may not be appropriate level of care and he likely will not qualify. If pt does need SNF [employer] does not authorize on weekends, earliest insurance auth would be obtained in Thursday. This does give pt time to improve and be safe to go home. Pt resides with spouse. [facility] do take [employer]. CM to follow. Date Signed: 06/26/2018 08:36 AM Electronically Signed By:VINNIE De Souza [facility] CM Progress Note CM Note CM Note Notes: Spoke with pt about SNF, he is adamantly declining SNF. Pt reports he needs to have one more night in the hospital and then he and his feel safe going home and following up with outpatient PT. CM will continue to follow. Date Signed: 06/26/2018 01:47 PM Electronically Signed By:VINNIE De Souza [facility] CM Progress Note CM Note ADWOA Note Notes: Pt Dania at bedside and asks to speak with CM. CM goes over all d/c options, by the end of the conversation pt and Dania adamant they will not consider SNF or HHC set up by the hospital. PT Sowmya does step into room for a bit and reports to Dania pt is cleared for home he needs a little work on stairs. Pt and Dania report they will d/c tomorrow and follow up with [facility] if they need any services. CM will follow. Date Signed: 06/26/2018 03:49 PM Electronically Signed By:VINNIE De Souza Case Management Discharge Plan Note Case Management Discharge Discharge Order Complete? Answers: Yes Patient to Obtain Answers: via Family Medications Transportation Arranged Answers: Family/Friends Transport will Pick (Date 06/27/2018 01:00 PM & Time) Family Notified Answers: Yes Notes: Family to transport Discharge Comments Notes: Patient has been discharged home. Patient and didn't want SNF rehab or HC. Date Signed: 06/27/2018 12:00 PM Electronically Signed By:Opal Conway LCSW Intervention Information
[~2018-06-27 12:18] MED LIST changes: +BISACODYL 10 MG SUPP PR PRN; +DEXAMETHASONE 4 MG/ML VIAL ONE; +DIPHENOXYLATE/ATROPINE LOMOTIL 1 TAB PO PRN; +HYDROmorphONE/DILAUDID 2 MG TAB PO PRN; +HYDROmorphONE/DILAUDID 2 MG/ML INJ IVP PRN; +LACTULOSE 20 GM/30 ML UDCUP PO PRN; +LIDOCAINE 2% 2 ML INJ ONE; +LR 1,000 ML IV ONE; +LR 1,000 ML IV SCH; +LR 500 ML IV PRN; +MAGNESIUM HYDROXIDE 30 ML UDCUP PO PRN; +METOCLOPRAMIDE 10 MG/2 ML VIAL IVP PRN; +MIDAZOLAM 2 MG/2 ML VIAL ONE; +NALOXONE HCL 0.4 MG/ML INJ IVP PRN; +ONDANSETRON 4 MG/2 ML VIAL IVP PRN; +ONDANSETRON 4 MG/2 ML VIAL ONE; +ONDANSETRON DISINTEGRATING 4 MG TAB PO PRN; +PHENYLEPHRINE HCL 100 MCG/ML SYR IVP PRN; +POLYETHYLENE GLYCOL 3350 17 GM PKT PO PRN; +PROMETHAZINE HCL 25 MG SUPPR PR PRN; +PROMETHAZINE HCL 25 MG/ML INJ IVP PRN; +PROPOFOL 200 MG/20 ML VIAL ONE; +PROPOFOL/EMULSION 500 MG/50 ML BOTTLE IV ONE; -ROPI/epiNEPH/KETOROLAC JOINT COCKTAIL IU ONE; +ROPIVACAINE 0.2% 80 MG, EPINEPHrine 0.2 MG, KETOROLAC TROMETHAMINE 30 MG in SYRINGE 0 ML IU ONE; +TRANEXAMIC ACID 3,000 MG in NS (SYRINGE) 50 ML IRR ONE; -VANCOMYCIN 1 GM VIAL ONE; -VANCOMYCIN 1.5 GM in D5W 250 ML IV ONE; +VANCOMYCIN 1.5 GM in NS 250 ML IV ONE; +VANCOMYCIN PHARMACY TO DOSE MISC ONE; +diphenhydrAMINE 25 MG CAP PO PRN; +fentaNYL 100 MCG/2 ML INJ ONE
--- NOTE | 2018-07-02 05:33 | GDS ---
ADMISSION DIAGNOSIS: Right hip osteoarthritis. DISCHARGE DIAGNOSIS: Right hip osteoarthritis. PROCEDURE: Right total hip arthroplasty. VT PROPHYLAXIS: Recommend Coumadin and Lovenox. BRIEF DESCRIPTION OF HOSPITAL STAY: Patient was admitted for an elective joint arthroplasty. The gardenia martin tolerated the procedure well and has passed physical therapy. The patient was given appropriat e antibiotic prophylaxis and venous thromboembolism prophylaxis. The patient's pain was well control led on oral pain medication, patient was holding down food, and had urinated. Decision was made to d ischarge the patient. The patient was given post-operative prescriptions pre-operatively. PLAN: To follow up as scheduled with Dr. Zhao's office July 15 at 1:45 a.m. /[id number]/MODL
== END | disposition home or self-care (01) | DRG 470 ==
LOC: F3N 06-23 06:06
PROVIDERS: ADMIT Orthopaedic Surgery; ATTEND Orthopaedic Surgery
PROC: 0SR904Z Replacement of Right Hip Joint with Ceramic on Polyethylene Synthetic Substitute, Open Approach (ICD-10-PCS; principal; 2018-06-23 08:00)
DX: M16.11 Unilateral primary osteoarthritis, right hip (principal); R33.9 Retention of urine, unspecified
CPT/HCPCS: 97110-GP; 97116-GP; 97161-GP; 97530-GP; J0171; J1100; J1650; J1885; J2250; J2270; J2405; J2704; J2795; J3010; J3370

== ENCOUNTER 2018-07-02 20:50 | Inpatient (IN) | payer OTHER ==
[2018-07-02] MEDS ORDERED: NS 1,000 ML IV ONE ×2 (21:49→22:09)
[2018-07-02] MEDS ORDERED: ONDANSETRON 4 MG/2 ML VIAL IVP ONE (22:09)
[2018-07-02] MEDS ORDERED: ACETAMINOPHEN 500 MG TAB PO ONE (22:11)
--- NOTE | 2018-07-02 22:12 | EDPHY ---
H & P Stated Complaint: fever, MOODY, and right hip replacement 9 days ago Time Seen by Provider: 07/02/18 21:54 HPI/ROS: Chief Complaint: Fever, headache, thigh pain HPI: 57-year-old male who is 9 days status post right hip replacement presenting with fever, increasing thigh pain and headache. Patient states that he has been having persistent thigh pain since the surgery. He has had negative x-rays. Had a slight cough today. No nausea or vomiting. Complaining of a headache and some pain in the back of his neck. No stiffness. No nausea or vomiting. Is complaining of worsening pain in his right thigh which is not controlled by his home pain medication. ROS: 10 systems were reviewed and were negative except those elements noted in the HPI. PMH: Partial knee replacements, spinal fusion Social History: No smoking, no alcohol, no recreational drug use Family History: non-contributory Physical Exam: Gen: Awake, Alert, uncomfortable appearing HEENT: Nose: no rhinorrhea Eyes: PERRLA, EOMI Mouth: Moist mucosa Neck: Supple, no JVD Chest: nontender, lungs clear to auscultation Heart: S1, S2 normal, no murmur Abd: Soft, non-tender, no guarding Back: no CVA tenderness, no midline tenderness Ext: no edema, incision site is non erythematous, right thigh tenderness, no swelling. No erythema Skin: no rash Neuro: CN II-XII intact, Sensation grossly intact, Strength 5/5 in bilateral upper and lower extremities - Personal History Current Tetanus/Diphtheria Vaccine: Yes Current Tetanus Diphtheria and Acellular Pertussis (TDAP): Yes - Medical/Surgical History Hx Asthma: No Hx Chronic Respiratory Disease: No Hx Diabetes: No Hx Cardiac Disease: No Hx Renal Disease: No Hx Cirrhosis: No Hx Alcoholism: No Hx HIV/AIDS: No Hx Splenectomy or Spleen Trauma: No Other PMH: ORTHO. HERNIA, BI LAT SHOULDER SURG. BI LAT KNEE AND HAND SURG, LYMPH NODE REMOVAL GROIN, SARCOIDOISIS, R ELBOW, LOWER BACK SX, sleep apnea-CPAP , right hip replacement - Social History Smoking Status: Never smoked Constitutional: Initial Vital Signs Temperature (C) 37.7 C 07/02/18 20:52 Heart Rate 120 H 07/02/18 20:52 Respiratory Rate 16 07/02/18 20:52 Blood Pressure 132/77 H 07/02/18 20:52 O2 Sat (%) 93 07/02/18 20:52 O2 Delivery Mode Nasal Cannula O2 (L/minute) 2 Allergies/Adverse Reactions: Penicillins Allergy (Severe, Verified 07/02/18 20:56) Hives celecoxib [From Celebrex] Allergy (Verified 07/02/18 20:56) Vomiting gabapentin Allergy (Verified 07/02/18 20:56) Other-Enter Comments hydrocodone bitartrate [From Vicodin] Allergy (Verified 07/02/18 20:56) Itching metaxalone [From Skelaxin] Allergy (Verified 07/02/18 20:56) Itching oxycodone Allergy (Verified 07/02/18 20:56) Itching pneumococcal 23-valent polysacchari [From Pneumovax 23] Allergy (Verified 20:56) Hives Home Medications: Medication Instructions Recorded Herbals/Supplements -Info Only 1 ea PO DAILY 06/21/18 Multivitamins [Multivitamin (*)] 1 each PO DAILY 06/21/18 Acetaminophen [Tylenol 325mg (*)] 650 mg PO Q6HRS tab 06/24/18 Cyclobenzaprine [Flexeril 10 MG 10 mg PO Q8HRS PRN tab 06/24/18 (*)] Tapentadol HCl [Nucynta 50 MG (*)] 50 mg PO Q4HRS PRN tab 06/24/18 Warfarin Sodium [Coumadin 5MG (*)] 5 mg PO DAILY16 tab 06/24/18 Colace 07/02/18 Medical Decision Making - Diagnostics Imaging Results: Imaging Impressions Chest X-Ray 07/02/18 22:04 Impression: Diminished lung volumes with right lower lobe atelectasis.. Extremity Ultrasound 07/02/18 22:04 Impression: 1. Small fluid right hip joint and small pocket of fluid lateral proximal thigh below the hip joint. Exam results discussed with Dr. Blu Perez ED Course/Re-evaluation: Chest x-ray noted, atelectasis present, no definitive infiltrate. Patient has leukocytosis of 18. Lactic acid is normal. Ultrasound shows small fluid collection which could be consistent with normal postoperative changes. Discussed with Orthopedics. They do not want the fluid collection aspirated at this point. They will evaluate the patient in the hospital. I have discussed with Dr. Butler, hospitalist. She will admit to her service for further care. Urinalysis is back. Urine consistent with UTI. Urine cultures have been sent. I have ordered Levaquin IV for him. Patient is feeling improved after fluids analgesia and acetaminophen. He will be admitted to observation for further evaluation. Dr. Jones, orthopedist, has seen the patient in the emergency department. - Data Points Laboratory Results: Laboratory Results 07/02/18 21:38 07/02/18 21:38 07/02/18 07/02/18 07/02/18 23:35 23:35 22:10 WBC RBC Hgb Hct MCV MCH MCHC RDW Plt Count MPV Neut % (Auto) Lymph % (Auto) Boyle % (Auto) Eos % (Auto) Baso % (Auto) Nucleat RBC Rel Count Absolute Neuts (auto) Absolute Lymphs (auto) Absolute Monos (auto) Absolute Eos (auto) Absolute Basos (auto) Absolute Nucleated RBC Immature Gran % Immature Gran # PT INR APTT VBG Lactic Acid 1.1 mmol/L mmol/L (0.7-2.1) Sodium Potassium Chloride Carbon Dioxide Anion Gap BUN Creatinine Estimated GFR Glucose Calcium Total Bilirubin Procalcitonin Urine Color YELLOW Urine Appearance CLEAR Urine pH 7.0 (5.0-7.5) Ur Specific [place] 1.005 (1.002-1.030) Urine Protein NEGATIVE (NEGATIVE) Urine Ketones NEGATIVE (NEGATIVE) Urine Blood 1+ H (NEGATIVE) Urine Nitrate POSITIVE H (NEGATIVE) Urine Bilirubin NEGATIVE (NEGATIVE) Urine Urobilinogen NEGATIVE EU EU (0.2-1.0) Ur Leukocyte Esterase 1+ H (NEGATIVE) Urine RBC 1-3 /hpf /hpf (0-3) Urine WBC 25-50 /hpf H /hpf (0-3) Ur Epithelial Cells NONE SEEN /lpf /lpf (NONE-1+) Urine Bacteria 1+ /hpf H /hpf (NONE SEEN) Urine Mucus TRACE /lpf /lpf (NONE-1+) Urine Glucose NEGATIVE (NEGATIVE) Nasal Influenza A PCR Pending Nasal Influenza B PCR Pending 07/02/18 07/02/18 07/02/18 21:38 21:38 21:38 WBC RBC Hgb Hct MCV MCH MCHC RDW Plt Count MPV Neut % (Auto) Lymph % (Auto) Boyle % (Auto) Eos % (Auto) Baso % (Auto) Nucleat RBC Rel Count Absolute Neuts (auto) Absolute Lymphs (auto) Absolute Monos (auto) Absolute Eos (auto) Absolute Basos (auto) Absolute Nucleated RBC Immature Gran % Immature Gran # PT 17.9 SEC H SEC (12.0-15.0) INR 1.46 H (0.83-1.16) APTT 35.3 SEC SEC (23.0-38.0) VBG Lactic Acid Sodium 131 mEq/L L mEq/L (135-145) Potassium 4.3 mEq/L mEq/L (3.3-5.0) Chloride 95 mEq/L L mEq/L (97-110) Carbon Dioxide 22 mEq/l mEq/l (22-31) Anion Gap 14 mEq/L mEq/L (6-14) BUN 17 mg/dL mg/dL (7-23) Creatinine 0.8 mg/dL mg/dL (0.7-1.3) Estimated GFR > 60 Glucose 122 mg/dL H mg/dL (70-100) Calcium 9.2 mg/dL mg/dL (8.5-10.4) Total Bilirubin 0.8 mg/dL mg/dL (0.1-1.4) Procalcitonin Pending Urine Color Urine Appearance Urine pH Ur Specific [place] Urine Protein Urine Ketones Urine Blood Urine Nitrate Urine Bilirubin Urine Urobilinogen Ur Leukocyte Esterase Urine RBC Urine WBC Ur Epithelial Cells Urine Bacteria Urine Mucus Urine Glucose Nasal Influenza A PCR Nasal Influenza B PCR 07/02/18 21:38 WBC 17.63 10^3/uL H 10^3/uL (3.80-9.50) RBC 4.36 10^6/uL L 10^6/uL (4.40-6.38) Hgb 12.9 g/dL L g/dL (13.7-17.5) Hct 36.4 % L % (40.0-51.0) MCV 83.5 fL fL (81.5-99.8) MCH 29.6 pg pg (27.9-34.1) MCHC 35.4 g/dL g/dL (32.4-36.7) RDW 12.3 % % (11.5-15.2) Plt Count 335 10^3/uL 10^3/uL (150-400) MPV 9.6 fL fL (8.7-11.7) Neut % (Auto) 86.1 % H % (39.3-74.2) Lymph % (Auto) 5.5 % L % (15.0-45.0) Boyle % (Auto) 7.3 % % (4.5-13.0) Eos % (Auto) 0.1 % L % (0.6-7.6) Baso % (Auto) 0.2 % L % (0.3-1.7) Nucleat RBC Rel Count 0.0 % % (0.0-0.2) Absolute Neuts (auto) 15.18 10^3/uL H 10^3/uL (1.70-6.50) Absolute Lymphs (auto) 0.97 10^3/uL L 10^3/uL (1.00-3.00) Absolute Monos (auto) 1.28 10^3/uL H 10^3/uL (0.30-0.80) Absolute Eos (auto) 0.02 10^3/uL L 10^3/uL (0.03-0.40) Absolute Basos (auto) 0.04 10^3/uL 10^3/uL (0.02-0.10) Absolute Nucleated RBC 0.00 10^3/uL 10^3/uL (0-0.01) Immature Gran % 0.8 % % (0.0-1.1) Immature Gran # 0.14 10^3/uL H 10^3/uL (0.00-0.10) PT INR APTT VBG Lactic Acid Sodium Potassium Chloride Carbon Dioxide Anion Gap BUN Creatinine Estimated GFR Glucose Calcium Total Bilirubin Procalcitonin Urine Color Urine Appearance Urine pH Ur Specific [place] Urine Protein Urine Ketones Urine Blood Urine Nitrate Urine Bilirubin Urine Urobilinogen Ur Leukocyte Esterase Urine RBC Urine WBC Ur Epithelial Cells Urine Bacteria Urine Mucus Urine Glucose Nasal Influenza A PCR Nasal Influenza B PCR Medications Given: Discontinued Medications Acetaminophen (Tylenol) 1,000 mg PO EDNOW ONE Stop: 07/02/18 22:12 Last Admin: 07/02/18 22:24 Dose: 1,000 mg Sodium Chloride (Ns) 1,000 mls @ 0 mls/hr IV ONCE ONE; Wide Open PRN Reason: Protocol Stop: 07/02/18 21:50 Last Admin: 07/02/18 21:53 Dose: 1,000 mls Sodium Chloride (Ns) 1,000 mls @ 0 mls/hr IV ONCE ONE; Wide Open PRN Reason: Protocol Stop: 07/02/18 22:10 Last Admin: 07/02/18 22:25 Dose: 1,000 mls Morphine Sulfate (Morphine) 4 mg IVP ONCE ONE Stop: 07/02/18 22:10 Last Admin: 07/02/18 22:25 Dose: 4 mg Ondansetron HCl (Zofran) 4 mg IVP EDNOW ONE Stop: 07/02/18 22:10 Last Admin: 07/02/18 22:25 Dose: 4 mg Departure - Departure Disposition: [facility] Inpatient Acute Clinical Impression: Urinary tract infection, Fever Condition: Fair
[2018-07-02 22:13] LABS: PLATELET COUNT 335 10^3/uL (150-400)
[2018-07-02 22:29] LABS: INR 1.46 (0.83-1.16); PROTIME(PATIENT) 17.9 SEC (12.0-15.0)
[2018-07-03] MEDS ORDERED: ONDANSETRON 4 MG/2 ML VIAL IVP PRN (00:05)
[2018-07-03] MEDS ORDERED: LORazepam 0.5 MG TAB PO PRN (00:05)
[2018-07-03] MEDS ORDERED: ONDANSETRON DISINTEGRATING 4 MG TAB PO PRN (00:05)
[2018-07-03] MEDS ORDERED: BISACODYL 10 MG SUPP PR PRN (01:00)
[2018-07-03] MEDS ORDERED: LACTULOSE 20 GM/30 ML UDCUP PO PRN (01:00)
[2018-07-03] MEDS ORDERED: MAGNESIUM HYDROXIDE 30 ML UDCUP PO PRN (01:00)
[2018-07-03] MEDS ORDERED: POLYETHYLENE GLYCOL 3350 17 GM PKT PO PRN (01:00)
--- NOTE | 2018-07-03 04:22 | GHP ---
DATE OF ADMISSION: 07/02/2018 SOURCE: The patient provides history, appears reliable. EMR was reviewed and case discussed with ED provider. CHIEF COMPLAINT: Fever. HISTORY OF PRESENT ILLNESS: This is a very pleasant 57-year-old gentleman with a past medical history significant for osteoarthritis, sarcoidosis, and is postop day #10 status post right total hip arthroplasty, who presents to the emergency department with complaints of fevers up to 104 Fahrenheit, increasing right thigh pain, headache and neck pain without any stiffness. Patient reports that he also developed a slight cough. He has not had any nausea or vomiting. He does note that he has been having some increased frequency. During his hospital stay here postoperatively, patient did have some urinary retention requiring straight cath. He has had increased frequency, but the patient also notes that today he has been feeling excessively thirsty and has been consuming a lot of water. The patient did see Dr. Zhao earlier in the day, who looked at his right thigh as the patient was concerned for persistent uncontrolled pain as well as swelling. At that time it was felt that the patient had normal postoperative changes and was discharged home, however, after his appointment patient began to develop fevers and shaking chills. The patient has not noted any increasing swelling in his right hip. No productive cough. No rashes or sores. He has not had any surrounding erythema at the incision site. REVIEW OF SYSTEMS: Ten systems reviewed and negative except as noted above. ALLERGIES: Penicillin, Celebrex, gabapentin, hydrocodone, metaxalone, and pneumococcal vaccine. HOME MEDICATIONS: Reviewed with the patient. Colace, warfarin, Nucynta, multivitamins, Flexeril, Tylenol. PAST MEDICAL HISTORY: Significant for osteoarthritis, sarcoidosis, ZACHARIAH on CPAP , and history of skin cancer, status post resection. PAST SURGICAL HISTORY: Significant for bilateral inguinal hernia repair, lumbar fusion L4-5 and subsequent blood patch, bilateral shoulder arthroscopy, bilateral knee arthroscopy and bilateral knee partial arthroplasty, hand surgery , lymph node removal in the groin, right elbow, right total hip arthroplasty on 06/23/2018 and possible Mohs resection for skin cancer. FAMILY HISTORY: Mother with AFib. Father with CHF. SOCIAL HISTORY: The patient is a teacher for [employer]. Does not smoke, drink, or utilize any illicit drugs. CODE STATUS: Full. PHYSICAL EXAMINATION: VITAL SIGNS: Upon arrival to the emergency department: Blood pressure 132/77, heart rate 120, respiratory rate 16, O2 sat is 93% on room air, temperature 37.7. Current vital signs available: Blood pressure 137/ 83, heart rate is 86, respiratory rate 20, O2 sat 96% on 2 L by nasal cannula. GENERAL: The patient without any acute distress. He lays in bed, appears uncomfortable. Appears acutely ill but nontoxic. HEAD: Normocephalic, atraumatic. EYES: Extraocular muscles are grossly intact. Pupils equal, round decreased reactivity to light bilaterally, but symmetric. No scleral icterus or conjunctival injection. ENT: Mucous membranes appear moist. Dentition intact. No oropharyngeal erythema or exudates. NECK: Supple. Trachea midline. CV: Regular rate and rhythm. No murmurs, rubs, or gallops appreciated. RESPIRATORY: Lung bases with a few crackles and otherwise clear to auscultation bilaterally. No wheezes or rhonchi. ABDOMEN: Positive bowel sounds. Soft, nontender to palpation. No rebound, guarding, or masses appreciated. : No suprapubic tenderness to palpation. No Zaragoza catheter in place. EXTREMITIES: Patient's right thigh with postoperative edema. Incision is bandaged. No surrounding erythema or presence of exudates. Patient with tenderness down the upper and mid lateral right thigh. He is otherwise able to move all extremities. His strength is grossly normal. NEURO: Grossly nonfocal. Moves all extremities with the exception of the right lower extremity due to pain. Sensation is intact to upper and lower extremities bilaterally and symmetric. PSYCH: Patient does appear a little bit uncomfortable, but he is pleasant and cooperative. Thought process, content, and questions are all appropriate. LABORATORY STUDIES: WBC 17.63, H and H are 12.9 and 36.4, MCV 83.5, platelet count is 335, no bands, neutrophil percent 86.1% and granulocyte percent 0.8%. PT is 17.9, INR 1.46, PTT is 35.3. Lactic acid 1.1. Sodium is 131, potassium is 4.3, chloride 95, CO2 is 22, anion gap 14, BUN is 17, creatinine 0.8, GFR greater than 60, glucose 122, calcium is 9.2, total bilirubin is 0.8, and procalcitonin is 0.14. UA specific gravity is 1.005, pH is 7.0, blood 1+, positive nitrites, leukocyte esterase positive, WBCs 25-50, bacteria 1+, urine culture pending, otherwise negative. Blood cultures and urine culture pending. Chest x-ray: Image and report reviewed. Diminished lung volumes with right lower lobe atelectasis. Ultrasound of the right hip: Report reviewed showing small fluid right hip joint and a small pocket of fluid in the lateral proximal thigh below the hip joint. ASSESSMENT AND PLAN: A pleasant 57-year-old gentleman, postop day #10 now status post right total hip with Dr. Zhao, who presents to the emergency department with a complaint fevers and chills. 1. Urinary tract infection. Patient with report of polyuria and has pyuria noted on urinalysis. The patient has been started on Levaquin due to anaphylactic reaction to penicillins. Will need to monitor his INR closely as he is on Coumadin for anticoagulation postoperatively. 2. Sepsis without acute organ dysfunction. Patient presented to the emergency department with a tachycardia in the 120s. Has a leukocytosis to 17,000. Has normal lactic acid. Blood cultures are pending as well as urine culture. He has been started on Levaquin as noted above. Patient's blood pressures have been adequate. 3. Intractable right hip pain due to postoperative status. Continue with ice. Resume patient's home pain medications, and additional recommendations as per orthopedic service. 4. Atelectasis, likely contributing to patient's complaint of cough. Incentive spirometry has been ordered for q.1 hour while awake. 5. Hyponatremia, possibly secondary to hypovolemia in the setting of urinary tract infection and dehydration. Patient is status post a liter of intravenous fluids normal saline. We will continue with intravenous supplementation. We will monitor the patient's sodium in the morning. 6. Hypochloremia in the setting of hyponatremia. Continue to monitor with fluids as noted above. 7. Anemia, slightly decreased from patient's discharge, but does not require transfusion at this time. No evidence of active bleeding. Will continue to monitor as patient is on Coumadin. 8. Anticoagulation with Coumadin postoperatively. Patient's INR is subtherapeutic, goal 2-3. Pharmacy consultation to assist with adjustments. 9. s/p R JUNO - continue PT/OT. patient seen in ED by ortho. 9. Hyperglycemia, mildly elevated, and this is nonfasting in nature. We will continue to monitor a.m. BMP. 10. Fluid, electrolyte, nutrition. Intravenous fluids as noted above. Encourage oral intake once the patient is tolerating. Electrolyte monitoring and replacement if needed. Regular diet. 11. Prophylaxis. The patient is on Coumadin, adjustments as noted above. Sequential compression devices. 12. Code status full. DISPOSITION: Patient admitted to observation status at this time to the med/ surg floor for continued monitoring, IV antibiotics and awaiting cultures. /[id number]/MODL MTDD
[2018-07-03] MEDS: TAPENTADOL HCL 50 MG TAB PO PRN ×4 (04:35→19:44)
[2018-07-03] MEDS: ACETAMINOPHEN 325 MG TAB PO PRN ×3 (04:35→15:06)
[2018-07-03 04:46] LABS: INR 1.57 (0.83-1.16); PROTIME(PATIENT) 18.9 SEC (12.0-15.0)
[2018-07-03] MEDS: NS 1,000 ML IV SCH ×2 (07:33→15:50)
[2018-07-03 07:35] LABS: PLATELET COUNT 333 10^3/uL (150-400)
--- NOTE | 2018-07-03 08:28 | GCON ---
I was asked to see the patient by the emergency room physician at [facility]. [facility], I had a conversation with the patient earlier this evening regarding his right hip and postoperat sanchez course. He had a right hip from anterior approach by Dr. Zhao approximately 9 days ago. He saw Dr. Zhao in clinic at 4p.m. today, was having no problems at that time and was arranged for further followup with Dr. Zhao. Since that time, the patient has developed headache as well as a fever around 102 or 103 by the 's measurement in the meantime. I had a discussion with the gardenia martin regarding his progress. He reports that his pain was well tolerated on the medications that he was given by Dr. Zhao. However, he had some concerns about the fever. He denies any difficult y breathing or difficulty urinating. He also reported no change in the overall symptoms regarding th e right hip itself. An x-ray was taken this afternoon which demonstrated normal alignment by report. PHYSICAL EXAMINATION: MUSCULOSKELETAL: Patient's hip is ranged gently and noted not to be painful. He had no sensory, motor or vascular deficit distal to the right lower extremity. The dressing was left intact. He has a sterile surgical dressing, but there was no evidence of erythema or infection underneath. VITAL SIGNS: The patient had normal vitals at the time when I saw him, and his breathin g pattern was normal. Urinalysis, blood cultures were both sent by the emergency department and the white count was measure d to be 18. IMPRESSION: Postoperative fever. ASSESSMENT AND PLAN: At this point, the patient will be worked up for a white count of 18 nine days after a hip replacement. At this point, I am really just available if the Medicine department should need anything regarding his workup. I will see him on a daily basis over the weekend as long as he is maintained an inpatient here. At this point, there is clearly no need for urgent orthopedic inter vention as there are no signs and symptoms of a septic hip. I would recommend against any sort of as piration in the hip at this point. I will be in communication with Dr. Jay Zhao regarding thi s patient's progress. If there are any further questions or concerns, please do not hesitate to cont act me at my cell phone at [phone]. Thank you for allowing our involvement with care of this gardenia martin. /[id number]/MODL
--- NOTE | 2018-07-03 08:48 | HOSPPROG ---
Hospitalist Progress Note Assessment/Plan: Sepsis: (HR, wbc's), lactate nl, source possibly UTI, but some abt post-op hip infection, noting fluid collection on US and increased pain with fever 104 yesterday. Minimal urinary symptoms, he did not have a melo with recent hospitalization. WBC's persist elevated at 17K despite Levaquin last night. -ortho consulted, doubts hip infection and wishes to avoid addition of Vanc -discussed atbx coverage with ID, who will consult -cont levaquin for now and await UCx and BCx's -trend wbc's Hyponatremia - Na improved with NS overnight, follow Anemia - suspect some post-op component, hgb stable, no e/o active bleeding JUNO - POD #10, as above, per ortho, post-op fluid collection likely normal post- op changes -cont pain control, could add celebrex per ortho -PT/OT DVT PPLX - coumadin per ortho, goal INR 1.8-2 Full code Dispo - change to inpt for ongoing management of fever / infection Subjective: Pt feels a little better this am, fever gone, less headache. Still feels weak and c/o increased right hip pain. No CP or SOB. Minimal cough. Objective: Vital Signs Temp Pulse Resp BP Pulse Ox 37.0 C 83 19 131/80 H 95 07/03/18 07:48 07/03/18 07:48 07/03/18 07:48 07/03/18 07:48 07/03/18 07:48 Laboratory Results 07/03/18 07:29 07/03/18 07:29 07/02/18 07/03/18 07/04/18 05:59 05:59 05:59 Intake Total 1999 Balance 1999 PT 18.9 SEC (12.0-15.0) H 07/03/18 04:02 INR 1.57 (0.83-1.16) H 07/03/18 04:02 - Physical Exam Constitutional: no apparent distress Eyes: PERRL Ears, Nose, Mouth, Throat: moist mucous membranes Cardiovascular: regular rate and rhythym Respiratory: no respiratory distress, clear to auscultation Gastrointestinal: normoactive bowel sounds, soft, non-tender abdomen Skin: warm Musculoskeletal: full muscle strength, other (Right anterior hip incision c/d/i , no erythema ) Neurologic: AAOx3 Psychiatric: interacting appropriately ICD10 Worksheet Patient Problems: Problems Problem Status Onset Fever Acute Urinary tract infection Acute Primary localized osteoarthritis of left knee Acute Primary localized osteoarthritis of right hip Acute Primary localized osteoarthritis of right knee Acute
[2018-07-03] MEDS: SENNOSIDES/DOCUSATE SODIUM TAB PO SCH ×2 (08:59→19:43)
[2018-07-03] MEDS: CYCLOBENZAPRINE 10 MG TAB PO PRN ×2 (08:59→20:05)
[2018-07-03] MEDS ORDERED: VANCOMYCIN 1.25 GM in NS 250 ML IV SCH (09:00)
--- NOTE | 2018-07-03 11:34 | SOAPPROG ---
[facility] Progress Note Assessment/Plan: Assessment: 57 yo M s/p R JUNO 10 days ago had a prolonged hospital course due to pain control. now actually improving from when he was seen in clinic yesterday his incision appears to be healing very well with no erythema swelling is decreasing UA showed UTI signs, at this time it is the likely source of increased WBC, although we will watch the hip closely has not had fever in ED or since admission would consider cont obs for his hip fluid in hip is normal after a JUNO if his incision changes at all due to erythema, drainage or dramatic increase in pain with fever would proceed with I&D of hip, but that is not indicated at this time will cont to follow closely. also have contacted Dr Shah to assist Dr Jiménez if surgery is needed after 8amSunday rec INR of 1.8-2 will try celebrex for pain as most of his pain is bursitis and his allergy to Celebrex was itching. continue nucynta and flexeril as needed. as well as tylenol call with questions Plan: 07/03/18 11:28 Objective: Vital Signs Temp Pulse Resp BP Pulse Ox 37.0 C 83 19 131/80 H 95 07/03/18 07:48 07/03/18 07:48 07/03/18 07:48 07/03/18 07:48 07/03/18 07:48 Laboratory Results 07/03/18 07:29 07/03/18 07:29 07/02/18 07/03/18 07/04/18 05:59 05:59 05:59 Intake Total 2000 Output Total 800 Balance 2000 -800 PT 18.9 SEC (12.0-15.0) H 07/03/18 04:02 INR 1.57 (0.83-1.16) H 07/03/18 04:02 ICD10 Worksheet Patient Problems: Problems Problem Status Onset Fever Acute Urinary tract infection Acute Primary localized osteoarthritis of left knee Acute Primary localized osteoarthritis of right hip Acute Primary localized osteoarthritis of right knee Acute
--- NOTE | 2018-07-03 12:02 | ASMTCMCOM ---
CM Note CM Note Notes: Pt has been admitted wt fever, sepsis, tachycardia, possible UTI. He is post op day 10 from R JUNO with Dr Zhao. PT/OT evals pending. Currently being treated for UTI. He lives with his here in [place]. CM will follow for any d/c needs. Date Signed: 07/03/2018 12:01 PM Electronically Signed By:VINNIE Del Cid
[2018-07-03] MEDS ORDERED: WARFARIN SODIUM 7.5 MG TAB PO ONE (16:00)
[2018-07-03] MEDS ORDERED: WARFARIN SODIUM 5 MG TAB PO SCH (16:00)
[2018-07-04] MEDS: levOFLOXACIN 500 MG/DEXTROSE 100 ML IV SCH ×2 (00:10→23:11)
[2018-07-04] MEDS: TAPENTADOL HCL 50 MG TAB PO PRN ×4 (00:11→17:09)
[2018-07-04] MEDS: NS 1,000 ML IV SCH (00:34)
[2018-07-04 04:38] LABS: PLATELET COUNT 284 10^3/uL (150-400)
[2018-07-04 04:49] LABS: INR 1.93 (0.83-1.16); PROTIME(PATIENT) 22.1 SEC (12.0-15.0)
--- NOTE | 2018-07-04 07:10 | SOAPPROG ---
[facility] Progress Note Assessment/Plan: Assessment: 57 yo M s/p R JUNO 11 days ago Feeling better today no fever documented in the hospital or ER his incision appears to be healing very well with no erythema swelling is decreasing pain better after celebrex UA showed UTI signs, at this time it is the likely source of increased WBC, although we will watch the hip closely cont obs for his hip in outpt setting fluid in hip is normal after a JUNO if his incision changes at all due to erythema, drainage or dramatic increase in pain with fever would proceed with I&D of hip, but that is not indicated at this time will cont to follow closely. also have contacted Dr Shah to assist Dr Jiménez if surgery is needed rec INR of 1.8-2, cont dose or alternating 5&7.5mg coumadin continue celebrex, nucynta and flexeril as needed. as well as tylenol call with questions f/u as scheduled sooner if any concerns or questions Plan: 07/03/18 11:28 07/04/18 07:06 Objective: Vital Signs Temp Pulse Resp BP Pulse Ox 37.0 C 81 16 147/96 H 92 07/04/18 04:00 07/04/18 04:00 07/04/18 04:00 07/04/18 04:00 07/04/18 04:00 Laboratory Results 07/04/18 03:44 07/03/18 07:29 07/03/18 07/04/18 07/05/18 05:59 05:59 05:59 Intake Total 1999 1363 Output Total 6 Balance 1999 PT 22.1 SEC (12.0-15.0) H 07/04/18 03:44 INR 1.93 (0.83-1.16) H 07/04/18 03:44 ICD10 Worksheet Patient Problems: Problems Problem Status Onset Fever Acute Urinary tract infection Acute Primary localized osteoarthritis of left knee Acute Primary localized osteoarthritis of right hip Acute Primary localized osteoarthritis of right knee Acute
[2018-07-04] MEDS: SENNOSIDES/DOCUSATE SODIUM TAB PO SCH ×2 (08:23→19:45)
--- NOTE | 2018-07-04 09:21 | HOSPPROG ---
Hospitalist Progress Note Assessment/Plan: Sepsis: (HR, wbc's), lactate nl. Presumed source is UTI. Consideration given to post-op infection of right hip with fluid collection on u/s. Discussed with ortho. Incision looks good, fluid collection on u/s is normal post-op finding, doubt this is source of infection. WBC's trending down. Remains afebrile. -cont levaquin -awaiting UCx (>100K GNR's), BCx's ngtd -cont to trend wbc's and fever curve Hyponatremia - Na improved with NS overnight, follow Anemia - suspect some post-op component, hgb stable, no e/o active bleeding JUNO - POD #11, stable, see above -cont pain control, added celebrex -cont prn flexeril -PT/OT DVT PPLX - coumadin per ortho, goal INR 1.8-2 Full code Dispo - cont inpt, possible d/c in am Subjective: Pt feels much better. Energy improved. No fevers. Hip pain improving. No CP or SOB. No abdominal pain, N/V. Objective: Vital Signs Temp Pulse Resp BP Pulse Ox 37.1 C 90 19 114/81 H 98 07/04/18 08:00 07/04/18 08:00 07/04/18 08:00 07/04/18 08:00 07/04/18 08:00 Laboratory Results 07/04/18 03:44 07/03/18 07:29 07/03/18 07/04/18 07/05/18 05:59 05:59 05:59 Intake Total 1999 1363 Output Total 4274 Balance 1999 -291 PT 22.1 SEC (12.0-15.0) H 07/04/18 03:44 INR 1.93 (0.83-1.16) H 07/04/18 03:44 - Physical Exam Constitutional: no apparent distress Eyes: PERRL Ears, Nose, Mouth, Throat: moist mucous membranes Cardiovascular: regular rate and rhythym Respiratory: no respiratory distress, clear to auscultation Gastrointestinal: normoactive bowel sounds, soft, non-tender abdomen Skin: warm Musculoskeletal: full muscle strength, other (Right anterior hip incision c/d/i , no erythema) Neurologic: AAOx3 Psychiatric: interacting appropriately ICD10 Worksheet Patient Problems: Problems Problem Status Onset Fever Acute Urinary tract infection Acute Primary localized osteoarthritis of left knee Acute Primary localized osteoarthritis of right hip Acute Primary localized osteoarthritis of right knee Acute
--- NOTE | 2018-07-04 11:38 | PDMN ---
Medical Necessity Medical necessity: [facility] [id number] Sepsis: 57 yo s/p JUNO POD10 presents w/ fevers and surgical site pain. Assessment reveals UTI w/ polyuria and pyuria. Pt is septic w/ HR 120s, WBC 17, sepsis protocol started w/ IV antibx, IVF, ID consult , blood and urine cx pending, trending WBC - note it did not go down overnight after initial IV antibx. Ortho consulted to assess surgical site. PT/OT to see pt. Change to IP status 07/03/18 @ 15:31 per MD order for ongoing management of fever and infection, anticipate>2MN. Pt meets IP criteria for sepsis w/ hemodynamic instability (tachy), dehydration. Hx osteoarthritis, sarcoidosis, ZACHARIAH on CPAP, recent JUNO.
[2018-07-04] MEDS: CYCLOBENZAPRINE 10 MG TAB PO PRN ×2 (12:00→19:37)
[2018-07-04] MEDS ORDERED: WARFARIN SODIUM 7.5 MG TAB PO ONE (16:00)
[2018-07-05 04:32] LABS: PLATELET COUNT 333 10^3/uL (150-400)
[2018-07-05 04:39] LABS: INR 2.02 (0.83-1.16); PROTIME(PATIENT) 22.9 SEC (12.0-15.0)
[2018-07-05] MEDS: ACETAMINOPHEN 325 MG TAB PO PRN (07:44)
[2018-07-05] MEDS: SENNOSIDES/DOCUSATE SODIUM TAB PO SCH (07:44)
[2018-07-05] MEDS: CYCLOBENZAPRINE 10 MG TAB PO PRN (07:45)
[2018-07-05 08:09] VITALS: BP 109/85
[2018-07-05] MEDS: TAPENTADOL HCL 50 MG TAB PO PRN (12:01)
--- NOTE | 2018-07-05 12:25 | ASMTLACE ---
TREVOR Length of stay for Answers: 2 days current admission Acuity / Level of Answers: Yes Care: Did the patient have an inpatient admission? 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
--- NOTE | 2018-07-05 12:27 | ASMTDCNOTE ---
Case Management Discharge Discharge Order Complete? Answers: Yes Patient to Obtain Answers: Independently Medications Transportation Arranged Answers: Family/Friends Discharge Comments Notes: Patient medically cleared for discharge today. Discussed this case in rounds this morning, no CM needs anticipated. CM available should needs arise. Date Signed: 07/05/2018 12:26 PM Electronically Signed By:Shelly Arora RN
[2018-07-05] MEDS ORDERED: WARFARIN SODIUM 2.5 MG TAB PO ONE (16:00)
--- NOTE | 2018-07-05 17:52 | PDDCSUM ---
Discharge Summary Discharge Summary: Date of Admission: 07/03/2018 Date of Discharge: 07/05/2018 Consultants: orthopedic surgery Discharge Diagnoses: 1. Sepsis 2. E coli CAUTI (present on arrival) 3. Post-operative anemia 4. Hyponatremia, resolved 5. Recent right total hip arthroplasty Brief Hospital Course: 57yo M who underwent right JUNO about 10 days ago presented with fever and was found to have mild sepsis and urine culture growing >100CFU of victor-sensitive E coli. He responded nicely to levofloxacin and will complete a course of this. This infection was likely precipitated by catheterization during recent post-op period. Evaluation of source of infection did show mild right hip fluid collection. Ortho was consulted and reports that this is normal in the post-op setting. He is maintained on warfarin with INR goal 1.8-2 for VTE prophylaxis. Medications: Please refer to EMR for complete list. Changes this admission include addition of levofloxacin 750mg qd for 5 more days. Follow Up Plan: 1. Ortho follow up as planned 2. Instructed to take 2.5mg warfarin this evening followed by alternating 5mg/ 7.5mg Physical Exam: Vitals reviewed, afebrile and normotensive. Alert and oriented, RRR without m/r/g, lungs clear, abdomen soft, no rashes or edema. Mild edema at right hip without overlying erythema or tenderness. Incision c/d/i.
== END 2018-07-05 13:12 | disposition home or self-care (01) | DRG 698 ==
LOC: F2W 07-03 03:41 → OBSVTOIN 07-03 15:31
PROVIDERS: ADMIT Family Medicine; ATTEND Family Medicine
DX: T83.518A Infection and inflammatory reaction due to other urinary catheter, initial encounter (principal); A41.51 Sepsis due to Escherichia coli [E. coli]; D62 Acute posthemorrhagic anemia; E87.1 Hypo-osmolality and hyponatremia; N39.0 Urinary tract infection, site not specified; E86.9 Volume depletion, unspecified; G47.33 Obstructive sleep apnea (adult) (pediatric); Z96.641 Presence of right artificial hip joint; Z85.828 Personal history of other malignant neoplasm of skin; Z79.01 Long term (current) use of anticoagulants
CPT/HCPCS: 96374; 97161-GP; 97165-GO; 97530-GO; 97530-GP; 97535-GO; J1956; J2270; J2405; J3370